=== PATIENT | male | born 1995 | race African-American/Black ===

== ENCOUNTER 2017-09-22 23:15 | Emergency (ER) | payer SELFPAY ==
[~2017-09-22] VITALS: Ht 177.8 cm; Wt 72.6 kg
[2017-09-22] MEDS ORDERED: NKM (23:22)
[2017-09-22] MEDS ORDERED: levETIRAcetam 500 MG in D5W 110 ML IV ONE (23:30)
[2017-09-22] MEDS ORDERED: LORazepam Inj 2mg/ml 1ml IV ONE (23:30)
[2017-09-22] MEDS ORDERED: LORazepam Inj 2mg/ml 1ml ONE (23:30)
[2017-09-22] MEDS ORDERED: Ketorolac 30mg Inj ONE (23:31)
--- NOTE | 2017-09-22 23:37 | Emergency Room Report ---
History of Present Illness General Chief Complaint: Seizure Source: Patient, Family Member, EMS Present Illness HPI The patient presents after having 2 seizures tonight. He was transported by EMS. Glucose was 89 in the field. He is not taking any medication for seizures. He has a history of having one seizure before after smoking cannabis. He smoked cannabis tonight also. Last night was his birthday celebration and he had a couple of shots and also drank mimosas in the morning. He does not drink alcohol daily. He has a headache now rated 6/10. Also he has L shoulder pain rated 8/10. No neck pain. This is aching. He fractured his left forearm and had surgery for this a week ago. He underwent general anesthesia without any problems. They knew that he had a seizure before. When he presented with prior seizure he had a CAT scan done. No medications were prescribed at that time. He was advised to follow-up with a neurologist but this did not happen. In part, Mom was uncertain whether it was actually a seizure. No fevers, chest pain, NV, abdominal pain, rashes, dysuria. No recent head trauma. Allergies: Coded Allergies: No Known Allergies (Unverified , 09/22/17) Patient History Past Medical History: see triage record Social History: Reports: alcohol use, drug use - Cannabis Social History Narrative from [place] here celebrating birthday Reviewed Nursing Documentation: PMH: Agreed; PSxH: Agreed Nursing Documentation-PMH Past Medical History: No Stated History Review of Systems All Other Systems: negative except mentioned in HPI Physical Exam Vital Signs Date Time Temp Pulse Resp B/P (MAP) Pulse Ox O2 Delivery O2 Flow Rate FiO2 09/22/17 23:17 98.6 76 16 121/68 100 Room Air 98.6 Sp02 EP Interpretation: reviewed, normal General Appearance: well appearing, no apparent distress, GCS 15 Head: normocephalic Eyes: bilateral eye PERRL, bilateral eye EOMI, bilateral eye Scleral Injection ENT: moist mucus membranes - no lingual macerations Neck: supple, no bony tend, tender lateral - left Respiratory: chest non-tender, lungs clear, normal breath sounds Cardiovascular #1: regular rate, rhythm Cardiovascular #2: 2+ radial (R) Gastrointestinal: normal inspection, normal bowel sounds, non tender, no mass, non-distended Musculoskeletal: back normal, normal range of motion, other - splint L and tenderness L shoulder to palpation. Elbow without pain Neurologic: alert, oriented x3, clinical studies specialist III-XII nml as tested, motor strength/tone normal, DTRs symmetric, sensory intact, cerebellar normal, speech normal, other - somewhat postictal Psychiatric: depressed affect Skin: normal inspection, warm/dry Medical Decision Making Diagnostic Impression: Primary Impression: Seizure ER Course Patient presents post seizures. DDx: delayed anesthesia reaction, alcohol withdrawal, reaction to cannabis, seizure disorder - untreated, electrolyte abnormalities amongst others. Non-focal and h/o prior CT, not indicated at this time. C-spine, forearm and shoulder x-rays, EKG and labs ordered. Also ativan and keppra ordered with toradol for pain. EKG no injury. Xrays neg for new fx (forearm post ORIF). Labs unremarkable. Patient sleepy after ativan and Keppra. Fully awake and ambulated to bathroom. Repeat neuro full and non-focal. Discussed seizure precautions and need to follow up. Patient stable for outpatient observation and treatment. Labs Test 09/22/17 01:22 09/22/17 23:40 Urine Color Yellow Urine Appearance Clear Urine pH 5 (4.5-8.0) Urine Specific [place] 1.020 (1.005-1.035) Urine Protein Negative (NEGATIVE) Urine Glucose (UA) Negative (NEGATIVE) Urine Ketones 1+ (NEGATIVE) Urine Occult Blood Negative (NEGATIVE) Urine Nitrite Negative (NEGATIVE) Urine Bilirubin Negative (NEGATIVE) Urine Urobilinogen Normal MG/DL (0.0-1.0) Urine Leukocyte Esterase Negative (NEGATIVE) Urine Opiates Screen Negative (NEGATIVE) Urine Barbiturates Screen Negative (NEGATIVE) Phencyclidine (PCP) Screen Negative (NEGATIVE) Urine Amphetamines Screen Negative (NEGATIVE) Urine Benzodiazepines Screen Negative (NEGATIVE) Urine Cocaine Screen Negative (NEGATIVE) Urine Marijuana (THC) Screen Positive (NEGATIVE) White Blood Count 10.3 K/UL (4.8-10.8) Red Blood Count 5.09 M/UL (4.70-6.10) Hemoglobin 15.5 G/DL (14.2-18.0) Hematocrit 45.1 % (42.0-52.0) Mean Corpuscular Volume 89 FL (80-99) Mean Corpuscular Hemoglobin 30.4 PG (27.0-31.0) Mean Corpuscular Hemoglobin Concent 34.4 G/DL (32.0-36.0) Red Cell Distribution Width 10.4 % (11.6-14.8) Platelet Count 314 K/UL (150-450) Mean Platelet Volume 6.8 FL (6.5-10.1) Neutrophils (%) (Auto) 72.8 % (45.0-75.0) Lymphocytes (%) (Auto) 19.7 % (20.0-45.0) Monocytes (%) (Auto) 5.5 % (1.0-10.0) Eosinophils (%) (Auto) 1.2 % (0.0-3.0) Basophils (%) (Auto) 0.7 % (0.0-2.0) Sodium Level 136 MMOL/L (136-145) Potassium Level 3.9 MMOL/L (3.5-5.1) Chloride Level 99 MMOL/L (98-107) Carbon Dioxide Level 29 MMOL/L (21-32) Anion Gap 8 mmol/L (5-15) Blood Urea Nitrogen 18 mg/dL (7-18) Creatinine 1.6 MG/DL (0.55-1.30) Estimat Glomerular Filtration Rate > 60 mL/min (>60) Glucose Level 101 MG/DL (74-106) Calcium Level 9.5 MG/DL (8.5-10.1) Total Bilirubin 0.9 MG/DL (0.2-1.0) Aspartate Amino Transf (AST/SGOT) 25 U/L (15-37) Alanine Aminotransferase (ALT/SGPT) 36 U/L (12-78) Alkaline Phosphatase 81 U/L (46-116) Total Protein 8.4 G/DL (6.4-8.2) Albumin 4.3 G/DL (3.4-5.0) Globulin 4.1 g/dL Albumin/Globulin Ratio 1.0 (1.0-2.7) Salicylates Level < 0.2 ug/mL (2.8-20) Acetaminophen Level < 2 MCG/ML (10-30) Serum Alcohol < 3 mg/dL EKG Diagnostic Results Rate: bradycardiac Rhythm: NSR ST Segments: no acute changes Rhythm Strip Diag. Results EP Interpretation: yes Rhythm: NSR, no PVC's, no ectopy Other X-Ray Diagnostic Results Other X-Ray Diagnostic Results #1: X-Ray ordered: c cpine # of Views/Limited Vs Complete: 3 View Indication: Pain EP Interpretation: Yes Interpretation: no dislocation, no soft tissue swelling, no fractures Impression: Other Electronically Signed by: Dani Oropeza MD Other X-Ray Diagnostic Results #2: X-Ray ordered: L shoulder # of Views/Limited Vs Complete: 3 View Indication: Pain Interpretation: no dislocation, no soft tissue swelling, no fractures Impression: No acute disease Electronically Signed by: Dani Oropeza MD Other X-Ray Diagnostic Results #3: X-Ray ordered: L forearm # of Views/Limited Vs Complete: 2 View Indication: Other EP Interpretation: Yes Interpretation: no dislocation, no soft tissue swelling, other - ORIF Impression: Other Electronically Signed by: Dani Oropeza MD Last Vital Signs Date Time Temp Pulse Resp B/P (MAP) Pulse Ox O2 Delivery O2 Flow Rate FiO2 09/23/17 03:20 97.6 50 16 117/74 100 Room Air 97.6 Status: improved Disposition: HOME, SELF-CARE Condition: Improved Scripts Levetiracetam (KEPPRA) 500 Mg Tablet 500 MG ORAL EVERY 12 HOURS, #60 TAB 0 Refills Prov: Dani Oropeza M.D. 09/23/17 Dani Oropeza M.D. Sep 22, 2017 23:37
[2017-09-22] MEDS ORDERED: Ketorolac 30mg Inj IV ONE (23:45)
[2017-09-23 00:12] LABS: BASOPHILS % (AUTO) 0.7 % (0.0-2.0); EOSINOPHILS % (AUTO) 1.2 % (0.0-3.0); HEMATOCRIT 45.1 % (42.0-52.0); HEMOGLOBIN 15.5 G/DL (14.2-18.0); LYMPHOCYTES % (AUTO) 19.7 % (20.0-45.0); MEAN CORPUSCULAR VOLUME 89 FL (80-99); MONOCYTES % (AUTO) 5.5 % (1.0-10.0); NEUTROPHILS % (AUTO) 72.8 % (45.0-75.0); PLATELET COUNT 314 K/UL (150-450); RED BLOOD COUNT 5.09 M/UL (4.70-6.10); RED CELL DISTRIBUTION WIDTH 10.4 % (11.6-14.8); WHITE BLOOD COUNT 10.3 K/UL (4.8-10.8)
[2017-09-23 00:15] LABS: ANION GAP 8 mmol/L (5-15); BLOOD UREA NITROGEN 18 mg/dL (7-18); CALCIUM 9.5 MG/DL (8.5-10.1); CARBON DIOXIDE 29 MMOL/L (21-32); CHLORIDE 99 MMOL/L (98-107); CREATININE 1.6 MG/DL (0.55-1.30); POTASSIUM 3.9 MMOL/L (3.5-5.1); SODIUM 136 MMOL/L (136-145)
[2017-09-23 00:20] LABS: ALANINE AMINOTRANSFERASE 36 U/L (12-78); ALBUMIN 4.3 G/DL (3.4-5.0); ALKALINE PHOSPHATASE 81 U/L (46-116); ASPARTATE AMINO TRANSFERASE 25 U/L (15-37); BILIRUBIN,TOTAL 0.9 MG/DL (0.2-1.0)
[2017-09-23 01:32] LABS: APPEARANCE,URINE CLEAR; BILIRUBIN, URINE NEGATIVE (NEGATIVE); GLUCOSE, URINE (UA) NEGATIVE (NEGATIVE); KETONES,URINE 1+ (NEGATIVE); LEUKOCYTE ESTERASE ,URINE NEGATIVE (NEGATIVE); NITRITE,URINE NEGATIVE (NEGATIVE); PH,URINE 5 (4.5-8.0); UROBILINOGEN,URINE NORMAL MG/DL (0.0-1.0)
[2017-09-23 01:33] LABS: COLOR,URINE YELLOW; PROTEIN,URINE NEGATIVE (NEGATIVE)
[2017-09-23] MEDS ORDERED: KEPPRA500 M4 ORAL (02:47)
[2017-09-23 03:18] VITALS: BP 117/74
[2017-09-23 03:20] VITALS: BP 117/74
--- NOTE | 2017-09-23 12:09 | Diagnostic Imaging Report ---
Indication: Pain in left shoulder after falling Technique: 3 views of the left shoulder Comparison: none Findings: No acute fractures. No dislocations. The joint spaces are preserved. Impression: Negative
--- NOTE | 2017-09-23 12:10 | Diagnostic Imaging Report ---
Indications: Pain in left forearm after fracture one week ago Technique: Two views of the left forearm Comparison: None Findings: Patient is in a splint which may slightly obscure bony detail. There is a well aligned fracture of the midshaft radius and overlying lateral sideplate and screws. No other fractures are demonstrated. Impression: Midshaft radial fracture, status post ORIF. No unusual features
--- NOTE | 2017-09-23 12:21 | Diagnostic Imaging Report ---
Indication: Neck pain after seizure Technique: 4 views of the cervical spine Comparison: none Findings: Bony alignment is normal. Vertebral body heights are preserved. Disc spaces are preserved. No prevertebral soft tissue swelling. No acute fractures. No dislocations. Unusual soft tissue densities project over the posterior upper neck. Impression: No acute process Unusual soft tissue densities, could represent soft tissue calcifications or could represent tattoos if any present
--- NOTE | 2017-09-27 16:28 | Cardiology Report ---
APPROVED REPORT EKG Measurement Heart [id number] Sinus bradycardia Voltage criteria for left ventricular hypertrophy Abnormal ECG
== END 2017-09-23 03:20 | disposition home or self-care (01) ==
LOC: EDBD 23:15 → EMR 23:32
DX: G40.909 Epilepsy, unspecified, not intractable, without status epilepticus (principal); S52.302D Unspecified fracture of shaft of left radius, subsequent encounter for closed fracture with routine healing; X58.XXXD Exposure to other specified factors, subsequent encounter; F12.90 Cannabis use, unspecified, uncomplicated
CPT/HCPCS: 36415; 72050; 73030; 73090; 80053; 80307; 81003; 85025; 93005; 96361; 96365; 96375; 99284; G0480; J1885; J1953; 80329